=== PATIENT | male | born 1950 | race Caucasian/White ===

== ENCOUNTER → 2017-11-11 | Outpatient (CLI) | payer OTHER, MEDICAID | LOC: BHFA 10:00 | PROVIDERS: ATTEND Internal Medicine Cardiovascular Disease | DX: I10 Essential (primary) hypertension (principal) ==

== ENCOUNTER 2017-11-20 11:56 | Day surgery (SDC) | payer OTHER, MEDICAID ==
[2017-11-20] MEDS ORDERED: TEMAZEPAM 15 MG CAP PO PRN (12:00)
[2017-11-20] MEDS ORDERED: ACETAMINOPHEN 325 MG TAB PO PRN (12:00)
[2017-11-20] MEDS ORDERED: ASPIRIN EC 325 MG TAB PO ONE ×2 (12:00→12:28)
[2017-11-20] MEDS ORDERED: FAMOTIDINE 20 MG TAB PO ONE (12:00)
[2017-11-20] MEDS ORDERED: NS 1,000 ML IV SCH (12:00)
[2017-11-20] MEDS ORDERED: DIAZEPAM 5 MG TAB PO ONE (12:00)
[2017-11-20] MEDS ORDERED: diphenhydrAMINE 25 MG CAP PO ONE ×2 (12:00→12:27)
[2017-11-20] MEDS ORDERED: NITROGLYCERIN 0.4 MG BTL SL PRN (12:00)
--- NOTE | 2017-11-20 12:10 | CPEKG ---
Heart Rate: 79 RR Interval: 759 P-R Interval: 184 QRSD Interval: 98 QT Interval: 368 QTC Interval: 422 P Palmer: 28 QRS Palmer: 39 T Wave Palmer: 63 EKG Severity - BORDERLINE ECG - EKG Impression: SINUS RHYTHM EKG Impression: LOW VOLTAGE IN FRONTAL LEADS EKG Impression: BORDERLINE T WAVE ABNORMALITIES Electronically Signed By: Mahin Mauricio 21-Nov-2017 19:13:02
[2017-11-20] MEDS ORDERED: FAMOTIDINE 20 MG TAB ONE (12:27)
[2017-11-20] MEDS ORDERED: DIAZEPAM 5 MG TAB ONE (12:28)
[2017-11-20 12:36] LABS: PLATELET COUNT 265 10^3/uL (150-400)
[2017-11-20 12:43] LABS: INR 0.91 (0.83-1.16); PROTIME(PATIENT) 12.5 SEC (12.0-15.0)
[2017-11-20] MEDS ORDERED: LIDOCAINE 1% 300 MG/30 ML SDV ONE (13:32)
[2017-11-20] MEDS ORDERED: fentaNYL 100 MCG/2 ML INJ ONE (13:32)
[2017-11-20] MEDS ORDERED: HEPARIN 10,000 UNIT/10 ML MDV (1,000 UNIT/ML) ONE (13:33)
[2017-11-20] MEDS ORDERED: IOPAMIDOL (ISOVUE-370) 150 ML BTL IV ONE ×2 (13:33)
[2017-11-20] MEDS ORDERED: MIDAZOLAM 2 MG/2 ML VIAL ONE ×2 (13:33→13:57)
[2017-11-20] MEDS ORDERED: VERAPAMIL 5 MG/2 ML VIAL ONE (13:33)
--- NOTE | 2017-11-20 13:37 | PDPROPOC ---
Sedation Plan of Care Sedation Plan of Care: vital signs stable, mental status noted, patient educated of risks, benefits, alternatives, patient can tolerate sedation ASA Classification: ASA 2 Planned drugs: fentanyl, midazolam Mallampati Score: Class 3 Mallampati Reference Image: Patient passed 3-3-2 rule?: No
--- NOTE | 2017-11-20 13:41 | PDGENHP ---
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 He has a very strong family history of CV illness. Paternal GF at 48 and father in early 60's because of complications of diabets. He has become progressively more short of breath with exercise. He now has CCS Class II and NYHA Class III symptoms. today he underwent nuclear stress test with very dramatic EKG changes suggestive of ischemia. this was considered a high risk stress test. Pertinent Past, Social, Family History: Please see HPI Relevant Physical Exam: VSS Alert oriented X 3, pleasant conversant. Understands risk benefit discussion ( I spoke with him for 30 minutes ABOUT MORTALITY RATE RISK OF STROKE HEART ATTACK ETC...)heart RRR with no murmur rub or gallop. Lungs CTA...Extremites withoue edema or clubbing. Cardiorespiratory Assessment: See above... Pt with high calcium score symptoms mainly related to SOB with exertion and decline in exercise tolerance, now with high risk stress test. He needs angiography as he has segmental wall motion abnormaloity on echo as well as a large perfusion deficit in circ territory.
[2017-11-20] MEDS ORDERED: ATROPINE SULFATE 1 MG/10 ML SYR IVP PRN (15:04)
[2017-11-20] MEDS ORDERED: ACETAMINOPHEN PO PRN (15:05)
[2017-11-20] MEDS ORDERED: TRAMADOL HCL 100 MG PO PRN (15:05)
[2017-11-20] MEDS ORDERED: HYDROCODONE PO PRN (15:05)
--- NOTE | 2017-11-20 15:16 | PDDXCAT ---
Diagnostic Cath Note - . Date: 11/20/17 Lan Specialist: Eleuterio High-risk criteria on non-invasive testing: stress-induced large perfusion defect (particularly if anterior) - Procedure Access: left wrist - Materials Left Heart Cath size: 6F Left Heart Cath materials: standard multipack (JL4, JR4, pigtail) - Findings-Left Heart Catheterization LM: 8mm in size with JASPAL III flow and no flow limiting obstruction. bifurcates into an LAD and Circ system. LAD: Ostial eccentric stenosis of 50% and 80% lesion proximal to the major diagonal takeoff and a good target distally with severe disease of both of the diagonal branches at the takeoff and for the first 15-20mm of both the alpha and beta branches of the principal diagonal. JASPAL III flow throughout. LCX: Codominant vessel with 90% proximal obstruction and total 100% occlusion of the circumflex proximal to the PDA takeoff. There is 100% occlusion to the circ/Om proximal with left to left collaterals to both distal branches. RCA: The patient has a small and codominant artery with a 90% obstruction of the mid RCA. LVEF: 45-50%. Wall motion: Basal inferior wall motion abnormality. Otherwise fairly good wall motion. Complications: NONE Assessment: The patient has severe triple vessel coronary disease as previously described with inferior wall hypokinesis. The findings are consistent with an ischemic cardiomyopathy and relatively well preserved ejection fraction. Plan: The patient will be discharged with activity restriction and then plan for CV surgical consultation. Patient Problems: Problems Problem Status Onset Coronary artery disease Acute Diabetes Acute Dyslipidemia Acute
[2017-11-20] MEDS ORDERED: BISOPROLOL FUMARATE 5 MG TAB PO SCH (21:00)
[2017-11-20] MEDS ORDERED: ATORVASTATIN CALCIUM 40 MG TAB PO SCH (21:00)
[2017-11-20] MEDS ORDERED: glipiZIDE 5 MG TAB PO SCH (21:00)
[2017-11-21] MEDS ORDERED: LISINOPRIL 20 MG TAB PO SCH (09:00)
[2017-11-21] MEDS ORDERED: CITALOPRAM 20 MG TAB PO SCH (09:00)
[2017-11-21] MEDS ORDERED: NON-FORMULARY NEW DRUG (Empagliflozin [Jardiance] 25 MG) PO SCH (09:00)
[2017-11-21] MEDS ORDERED: MULTIVITAMINS 1 EACH TAB PO SCH (09:00)
[2017-11-21] MEDS ORDERED: LIRAGLUTIDE 1.8 MG SQ SCH (09:00)
[2017-11-21] MEDS ORDERED: THYROID 60 MG TAB PO SCH (10:00)
== END 2017-11-20 18:01 | disposition home or self-care (01) ==
LOC: FCATH 11:56
PROVIDERS: ATTEND Internal Medicine Cardiovascular Disease
PROC: B2151ZZ Fluoroscopy of Left Heart using Low Osmolar Contrast (ICD-10-PCS; principal; 2017-11-20)
PROC: B2111ZZ Fluoroscopy of Multiple Coronary Arteries using Low Osmolar Contrast (ICD-10-PCS; principal; 2017-11-20)
PROC: 4A023N7 Measurement of Cardiac Sampling and Pressure, Left Heart, Percutaneous Approach (ICD-10-PCS; principal; 2017-11-20)
DX: I25.10 Atherosclerotic heart disease of native coronary artery without angina pectoris (principal); I25.82 Chronic total occlusion of coronary artery; R94.39 Abnormal result of other cardiovascular function study; R06.02 Shortness of breath; E78.5 Hyperlipidemia, unspecified; I10 Essential (primary) hypertension; F32.9 Major depressive disorder, single episode, unspecified; F41.9 Anxiety disorder, unspecified; E11.9 Type 2 diabetes mellitus without complications; E03.9 Hypothyroidism, unspecified; G89.29 Other chronic pain; Z87.891 Personal history of nicotine dependence; Z82.49 Family history of ischemic heart disease and other diseases of the circulatory system; Z82.3 Family history of stroke
CPT/HCPCS: A9500; J1644; J2250; J2785; J3010; Q9967

== ENCOUNTER → 2017-11-20 | Outpatient (CLI) | payer OTHER, MEDICAID | LOC: BHFA 09:30 | PROVIDERS: ATTEND Internal Medicine Cardiovascular Disease | DX: I10 Essential (primary) hypertension (principal) | CPT/HCPCS: 78452; 93017; A9500; J2785 ==

== ENCOUNTER → 2017-11-25 | Outpatient (CLI) | payer OTHER, MEDICAID | LOC: BHFA 11:30 | PROVIDERS: ATTEND Thoracic Surgery (Cardiothoracic Vascular Surgery) | DX: I25.10 Atherosclerotic heart disease of native coronary artery without angina pectoris (principal) ==

== ENCOUNTER → 2017-12-01 | Outpatient (CLI) | payer OTHER, MEDICAID | LOC: FIMAGING 13:29 | PROVIDERS: ATTEND Thoracic Surgery (Cardiothoracic Vascular Surgery) | DX: I25.10 Atherosclerotic heart disease of native coronary artery without angina pectoris (principal) ==

== ENCOUNTER 2017-12-02 09:27 | Inpatient (IN) | payer OTHER, MEDICAID ==
[~2017-12-02 09:27] MED LIST: AMINOCAPROIC ACID 5 GM/20 ML VIAL IV ONE; INSULIN REGULAR HUMAN 100 UNIT in NS 100 ML IV ONE; MANNITOL 25% 12.5 GM/50 ML VIAL IVP ONE; NOREPINEPHRINE BITARTRATE 16 MG in NS 250 ML IV ONE; PHENYLEPHRINE HCL 50 MG in NS 250 ML IV ONE; SODIUM BICARBONATE 20 MEQ, LIDOCAINE 1% 10 ML in NORMOSOL-R 1,000 ML MISC ONE; VERAPAMIL 5 MG, NITROGLYCERIN 2.5 MG, HEPARIN 500 UNIT, SODIUM BICARBONATE 0.2 MEQ in L... MISC ONE
[2017-12-02] MEDS ORDERED: niCARdipine/NACL 200 ML IV SCH (09:29)
[2017-12-02] MEDS ORDERED: CITRATE DEXTROSE SOLN 500 ML BAG MISC ONE (09:29)
[2017-12-02] MEDS ORDERED: ceFAZolin 2 GM/SWFI 2 GM/20 ML SYR IVP ONE (09:29)
[2017-12-02] MEDS ORDERED: MUPIROCIN 2% 22 GM OINT NS ONE (09:29)
[2017-12-02] MEDS ORDERED: LR 1,000 ML IV ONE (09:30)
[2017-12-02] MEDS ORDERED: LIDOCAINE 1% 2 ML INJ ID PRN (09:30)
[2017-12-02] MEDS ORDERED: PAPAVERINE HCL 60 MG/2 ML SDV ONE (10:17)
[2017-12-02] MEDS ORDERED: MINERAL OIL 10 ML VIAL ONE (10:17)
[2017-12-02] MEDS ORDERED: VERAPAMIL 5 MG/2 ML VIAL ONE (10:18)
--- NOTE | 2017-12-02 11:28 | PDHPUP ---
History & Physical Update H&P update statement: This history and physical update is based on an assessment of the patient which was completed after admission or registration (within 24 hours), but prior to the surgery/procedure. H&P update: no change in patient's condition since H&P completed
[2017-12-02] MEDS ORDERED: CALCIUM CHLORIDE 1 GM/10 ML INJ ONE ×2 (11:57→11:59)
[2017-12-02] MEDS ORDERED: PROTAMINE SULFATE 50 MG/5 ML VIAL IVP ONE (11:57)
[2017-12-02] MEDS ORDERED: HEPARIN 10,000 UNIT/10 ML MDV (1,000 UNIT/ML) ONE ×2 (11:58→12:00)
[2017-12-02] MEDS ORDERED: NA BICARBONATE 50 MEQ/50 ML VIAL ONE (11:58)
[2017-12-02] MEDS ORDERED: DOPamine/DEXTROSE/250 ML BAG IV ONE (11:58)
[2017-12-02] MEDS ORDERED: MILRINONE/DEXTROSE/100 ML BAG IV ONE (11:58)
[2017-12-02] MEDS ORDERED: ADENOSINE 6 MG/2 ML VIAL ONE (11:59)
[2017-12-02] MEDS ORDERED: ceFAZolin 1 GM VIAL ONE (11:59)
[2017-12-02] MEDS ORDERED: AMIODARONE HCL 150 MG/3 ML VIAL ONE ×2 (11:59→12:00)
[2017-12-02] MEDS ORDERED: niCARdipine/NACL/200 ML BAG IV ONE (11:59)
[2017-12-02] MEDS ORDERED: ALBUMIN 5% 250 ML BOTTLE IV ONE (11:59)
--- NOTE | 2017-12-02 11:59 | PDANEPAE ---
ANE History of Present Illness cad s/f CABG ANE Past Medical History - Cardiovascular History Hx Hypertension: Yes Hx Arrhythmias: No Hx Chest Pain: No Hx Coronary Artery / Peripheral Vascular Disease: Yes Hx CHF / Valvular Disease: No Hx Palpitations: No - Pulmonary History Hx COPD: No Hx Asthma/Reactive Airway Disease: No Hx Recent Upper Respiratory Infection: No Hx Oxygen in Use at Home: No Hx Sleep Apnea: No Sleep Apnea Screening Result - Last Documented: Positive - Neurologic History Hx Cerebrovascular Accident: No Hx Seizures: No Hx Dementia: No - Endocrine History Hx Diabetes: Yes Endocrine History Comment: NIDDM. HYPOTHYROID - Renal History Hx Renal Disorders: Yes Renal History Comment: CKD. NOCTURIA - Liver History Hx Hepatic Disorders: No - Neurological & Psychiatric Hx Hx Neurological and Psychiatric Disorders: Yes Neurological / Psychiatric History Comment: DEPRESSION/ANXIETY - Cancer History Hx Cancer: No - Congenital Disorder History Hx Congenital Disorders: No - GI History Hx Gastrointestinal Disorders: No - Chronic Pain History Chronic Pain: No - Surgical History Prior Surgeries: LAMINECTOMY ANE Review of Systems Review of Systems: - Exercise capacity METS (RN): 6 METS ANE Patient History - Allergies Allergies/Adverse Reactions: morphine [Morphine] Allergy (Mild, Verified 08/15/10 23:13) Rash - Home Medications Home medications: home medication list seen and reviewed Home Medications: Thyroid [Pratts Thyroid 60 MG (*)] 90 mg PO DAILY10 10/11/09 [Last Taken 1 Day Ago ~12/01/17] glipiZIDE [Glipizide] 5 mg PO BID 10/11/09 [Last Taken 1 Day Ago ~12/01/17] metFORMIN HCL [Glucophage 1000 mg] 1,000 mg PO BID 10/11/09 [Last Taken 11/30/17 ] Empagliflozin [Jardiance] 25 mg PO DAILY 08/15/10 [Last Taken 1 Day Ago ~] Lisinopril [Zestril 20 mg (*)] 20 mg PO DAILY 08/15/10 [Last Taken 1 Day Ago ~] Atorvastatin Calcium [Lipitor 40 mg (*)] 80 mg PO HS 11/20/17 [Last Taken 1 Day Ago ~12/01/17] Bisoprolol Fumarate [Zebeta (*)] 5 mg PO HS 11/20/17 [Last Taken 1 Day Ago ~03/13] Citalopram [CeleXA] 20 mg PO DAILY 11/20/17 [Last Taken 1 Day Ago ~12/01/17] Liraglutide [Victoza 3-Ubaldo] 1.8 mg SQ DAILY 11/20/17 [Last Taken 1 Day Ago ~03/13] Multivitamins [Multivitamin (*)] 1 each PO DAILY 11/20/17 [Last Taken 1 Day Ago ~12/01/17] traMADol HCL [Tramadol HCl ER] 100 mg PO DAILY PRN 11/20/17 [Last Taken 4 Days Ago ~11/28/17] Klonopin HS 12/01/17 [Last Taken 1 Day Ago ~12/01/17] - NPO status NPO Since - Liquids (Date): 12/02/17 NPO Since - Liquids (Time): 09:45 NPO Since - Solids (Date): 12/01/17 NPO Since - Solids (Time): 21:00 - Anes Hx Anes Hx: no prior problems - Smoking Hx Smoking Status: Former smoker - Alcohol Use Alcohol Use: None - Family Anes Hx Family Anes Hx: none ANE Labs/Vital Signs - Labs - CBC WBC: okay - Labs - BMP Glucose: 232 today - Vital Signs Blood Pressure: 143/82 Heart Rate: 73 Respiratory Rate: 18 O2 Sat (%): 95 Height: 168.91 cm Weight: 80.739 kg ANE Physical Exam - Airway Neck exam: FROM Mallampati Score: Class 2 Mouth exam: normal dental/mouth exam - Pulmonary Pulmonary: no respiratory distress - Cardiovascular Cardiovascular: regular rate and rhythym - ASA Status ASA Status: III ANE Anesthesia Plan Anesthesia Plan: general endotracheal anesthesia Lines/Monitors: arterial line, central line
[2017-12-02] MEDS ORDERED: MAGNESIUM SULFATE 1 GM/2 ML VIAL ONE (12:00)
[2017-12-02] MEDS ORDERED: methylPREDNISolone SOD SUCC 1 GM/8 ML VIAL ONE (12:00)
[2017-12-02] MEDS ORDERED: LIDOCAINE 2% 100 MG/5 ML SYR ONE ×2 (12:00→12:06)
[2017-12-02] MEDS ORDERED: CITRATE DEXTROSE SOLN 500 ML BAG ONE (12:00)
[2017-12-02] MEDS ORDERED: REMIFENTANIL HCL 1 MG VIAL ONE ×2 (12:04→13:51)
[2017-12-02] MEDS ORDERED: MIDAZOLAM 2 MG/2 ML VIAL ONE ×2 (12:05→12:07)
[2017-12-02] MEDS ORDERED: PROPOFOL/EMULSION 500 MG/50 ML BOTTLE IV ONE ×2 (12:05→13:51)
[2017-12-02] MEDS ORDERED: DEXAMETHASONE 4 MG/ML VIAL ONE (12:05)
[2017-12-02] MEDS ORDERED: epHEDrine SULFATE 10 MG/ML SYR ONE (12:05)
[2017-12-02] MEDS ORDERED: PHENYLEPHRINE HCL 100 MCG/ML SYR ONE (12:05)
[2017-12-02] MEDS ORDERED: ONDANSETRON 4 MG/2 ML VIAL ONE (12:05)
[2017-12-02] MEDS ORDERED: ROCURONIUM 100 MG/10 ML VIAL ONE (12:05)
[2017-12-02] MEDS ORDERED: fentaNYL 250 MCG/5 ML INJ ONE ×2 (12:05→13:10)
[2017-12-02] MEDS ORDERED: LIDOCAINE HCL 160 MG/4 ML LTA KIT TP ONE (12:06)
[2017-12-02] MEDS ORDERED: MIDAZOLAM 2 MG/2 ML VIAL IVP ONE (13:20)
[2017-12-02] MEDS ORDERED: DEXMEDETOMIDINE HCL 400 MCG in NS 100 ML IV SCH ×2 (13:30→15:30)
[2017-12-02] MEDS ORDERED: fentaNYL 50 MCG PATCH TD SCH (13:30)
[2017-12-02] MEDS ORDERED: fentaNYL 100 MCG/2 ML INJ ONE ×2 (15:58→16:15)
[2017-12-02] MEDS ORDERED: SODIUM CL NASAL 45 ML BTL EACHNARE PRN (16:22)
[2017-12-02] MEDS ORDERED: ONDANSETRON DISINTEGRATING 4 MG TAB PO PRN (16:22)
[2017-12-02] MEDS ORDERED: BISACODYL 10 MG SUPP PR PRN (16:22)
[2017-12-02] MEDS ORDERED: MEPERIDINE 25 MG/0.5 ML AMP IVP PRN (16:22)
[2017-12-02] MEDS ORDERED: MAGNESIUM HYDROXIDE 30 ML UDCUP PO PRN (16:22)
[2017-12-02] MEDS ORDERED: METOCLOPRAMIDE 10 MG/2 ML VIAL IVP PRN (16:22)
[2017-12-02] MEDS ORDERED: LACTULOSE 20 GM/30 ML UDCUP PO PRN (16:22)
[2017-12-02] MEDS ORDERED: ONDANSETRON 4 MG/2 ML VIAL IVP PRN (16:22)
[2017-12-02] MEDS ORDERED: PANTOPRAZOLE SODIUM 40 MG VIAL IVP ONE (16:22)
[2017-12-02] MEDS ORDERED: ACETAMINOPHEN 650 MG SUPP PR PRN (16:22)
[2017-12-02] MEDS ORDERED: POTASSIUM Cl (KCl) 50 ML IV PRN (16:22)
[2017-12-02] MEDS ORDERED: D50W 25 GM/50 ML SYR IVP PRN (16:22)
[2017-12-02] MEDS ORDERED: CEPACOL LOZENGE PO PRN (16:22)
[2017-12-02] MEDS ORDERED: POLYETHYLENE GLYCOL 3350 17 GM PKT PO PRN (16:22)
[2017-12-02] MEDS ORDERED: MAGNESIUM SULF 2 GM/WATER 50 ML IV ONE (16:22)
[2017-12-02] MEDS ORDERED: oxyCODONE IR 5 MG TAB PO PRN (16:30)
[2017-12-02] MEDS ORDERED: INSULIN REGULAR HUMAN 100 UNIT in NS 100 ML IV SCH (16:30)
[2017-12-02] MEDS ORDERED: NS 1,000 ML IV SCH (16:30)
[2017-12-02] MEDS ORDERED: SUGAMMADEX SODIUM 200 MG/2 ML VIAL IVP ONE (16:48)
--- NOTE | 2017-12-02 17:17 | PDMN ---
Medical Necessity Medical necessity: IP surgery per [facility] cpt 08820 CABG X 4
--- NOTE | 2017-12-02 17:19 | GOP ---
[f rep st] OPERATIVE REPORT DATE OF OPERATION: 12/02/2017 SURGEON: Junior Arroyo DO GUM ROLLING MACHINE TENDER: Mayra Lozano, TATYANA ANESTHESIOLOGIST: Paulo Singh MD PREOPERATIVE DIAGNOSIS: 1. Class 3 angina with severe 3-vessel disease and moderate left ventricular dysfunction. 2. Diabetes mellitus. 3. Ischemic cardiomyopathy. POSTOPERATIVE DIAGNOSIS: 1. Class 3 angina with severe 3-vessel disease and moderate left ventricular dysfunction. 2. Diabetes mellitus. 3. Ischemic cardiomyopathy. PROCEDURE PERFORMED: 1. Coronary bypass grafting x4, left internal mammary artery to LAD, right internal mammary artery t o the 2nd diagonal, saphenous vein graft to the lateral circumflex, and saphenous vein graft to the P DA. 2. Atricure ligation of left atrial appendage. 3. CABG for endoscopic vein harvest and AtriClip to the left atrial appendage. FINDINGS: DESCRIPTION OF PROCEDURE: The patient was consented for surgery, brought to the operating room, intu bated, monitoring lines were placed. He was prepped and draped in sterile classical manner. Sternot grabiel was performed. Both mammaries were harvested. They were excellent quality vessels with good trevor w. He was heparinized, cannulated. Cardiopulmonary bypass was begun. A cardioplegic arrest was obt ained with antegrade cardioplegia, topical hypothermia, and systemic cooling. Initially, a 1.4 mm PD A was grafted with vein both distally and proximally. It was a very small vessel. The main right co ronary artery was heavily calcified and this was the only side that could be grafted. It was brought out to the aorta in a standard fashion. I then grafted the lateral circumflex in the midportion due to heavy calcification extending out into the midportion of the ventricle. It was a 2 mm vessel. E xcellent conduit was grafted to it end-to-side and then brought off the ascending aorta in the standa rd fashion. Rewarming was begun while the right internal mammary artery was brought to the 2nd diago nal grafted. The 2nd diagonal was a 2 mm vessel. The mammary was 2 mm. It was grafted without inci dent and tacked to the epicardium. While rewarming was begun the left internal mammary artery was gr afted to the distal LAD and tacked to the epicardium. A 35 mm AtriClip was applied to the base of th e left atrial appendage. Cross-clamp was removed with suction on the ascending aortic vent. It shou ld be noted that Mayra KING harvested the vein endoscopically in the left leg. The patient was easi ly weaned from bypass. The heparin was reversed with protamine. The cannula was removed and oversew n. Two ventricular pacing wires, 2 pleural, 1 mediastinal drain were placed. The thymic fat and per icardium were closed. Chest was closed in standard fashion. Patient was returned to ICU in stable c ondition. /[id number]/MODL
[2017-12-02] MEDS ORDERED: SODIUM BICARBONATE 50 MEQ/50 ML SYR ONE (17:27)
[2017-12-02] MEDS: HYDROmorphone HCL/NS 0.5 MG/ML SYR IVP PRN ×2 (18:04→20:06)
--- NOTE | 2017-12-02 18:06 | CPEKG ---
Heart Rate: 89 RR Interval: 674 P-R Interval: 196 QRSD Interval: 96 QT Interval: 376 QTC Interval: 458 P Vance: 50 QRS Vance: 29 T Wave Vance: 109 EKG Severity - ABNORMAL ECG - EKG Impression: SINUS RHYTHM EKG Impression: LOW VOLTAGE IN FRONTAL LEADS Electronically Signed By: Josep Watson 03-Dec-2017 12:44:55
[2017-12-02] MEDS ORDERED: NA BICARBONATE 50 MEQ/50 ML VIAL IV ONE (18:15)
[2017-12-02] MEDS: fentaNYL 100 MCG/2 ML INJ IVP PRN ×4 (18:27→23:10)
[2017-12-02] MEDS: ALBUMIN 5% 250 ML IV PRN ×2 (19:46→20:07)
[2017-12-02] MEDS: MUPIROCIN 2% 22 GM OINT NS SCH (21:12)
[2017-12-02] MEDS: ceFAZolin 2 GM/SWFI 2 GM/20 ML SYR IVP SCH (21:57)
[2017-12-02] MEDS ORDERED: ceFAZolin 2 GM/DEXTROSE 100 ML IV SCH (22:00)
[2017-12-03] MEDS: fentaNYL 100 MCG/2 ML INJ IVP PRN ×9 (00:13→13:02)
[2017-12-03 04:19] LABS: PLATELET COUNT 152 10^3/uL (150-400)
[2017-12-03] MEDS: HEPARIN 5,000 UNIT/0.5 ML SYR SC SCH ×3 (05:57→21:59)
[2017-12-03] MEDS: ceFAZolin 2 GM/SWFI 2 GM/20 ML SYR IVP SCH ×3 (05:58→22:06)
--- NOTE | 2017-12-03 06:57 | SOAPPROG ---
SOAP Progress Note Assessment/Plan: Assessment: POD#1 CABG x 4 (FAJARDO-LAD, VIKRAM-Dx, SV-PLC, SV-PDA), EVH LLE, prophylactic AtriClip ligation left atrial appendage Sx severe CAD - s/p CABG with 2 arterial grafts. Extubated in the OR. Stable early postop course. Secondary prevention with ASA, BB as tolerated and statin when eating well. ISCM w LVEF 45-50% - Improved LV systolic fx post revasc. Off CPB without inotropic support. No sig volume overload. Adequate diuresis with stable renal fx. Staggered reintro of heart failure meds when appropriate. DM2 - Poorly controlled by preop A1c of 10.2%. Postop hyperglycemia managed with insulin gtt. Transition to basal/prandial/SSI per ICU/Hospitalist. Acute on chronic pain - Narc dep LBP. Postop pain exacerbated by bilateral IMAs/ pleural tubes. Management w multimodal analgesia. Plan: Routine POD#1 orders re wires, drains, orals and mobility. Add oral dilaudid to pain regimen. Colloid prn CVP < 10. Lasix prn CVP > 15. Probable tx to PCU later today. 12/03/17 06:53 Subjective: Currently comfortable. Hard to take a deep breath. No dizziness or nausea. Objective: Vital Signs Temp Pulse Resp BP Pulse Ox 36.6 C 95 29 H 148/65 H 96 12/02/17 22:00 12/03/17 06:00 12/03/17 06:00 12/03/17 06:00 12/03/17 06:00 Laboratory Results 12/03/17 04:00 12/03/17 04:00 12/02/17 12/03/17 12/04/17 05:59 05:59 05:59 Intake Total 1272.7 Output Total 2568 Balance -1295.3 HR, rhythm and BP stable. Min suppl O2. Adequate fluid balance. CXR-> hypoventilation, no PTX, no undrained effusions, mild pulm vasc congestion. CTOP thinning, amount sl elev. Labs as expected. Physical Exam - Physical Exam General Appearance: alert, no apparent distress Respiratory: crackles (bases), other (blakes x 3 y-d to pleurovac, serosang drainage, no air leak) Cardiac/Chest: regular rate, rhythm, other (Sternotomy CDI, TCPWs intact.) Abdomen: normal bowel sounds, non-tender, soft Skin: warm/dry Extremities: swelling (trace), other (LLE venotomy CDI) ICD10 Worksheet Patient Problems: Problems Problem Status Onset Acute blood loss anemia Acute Ischemic cardiomyopathy Acute S/P CABG x 4 Acute ~12/02/17 CKD (chronic kidney disease) Chronic Chronic pain Chronic Coronary artery disease Chronic Diabetes Chronic Dyslipidemia Chronic
[2017-12-03] MEDS: THYROID 60 MG TAB PO SCH (09:02)
[2017-12-03] MEDS: HYDROmorphONE/DILAUDID 2 MG TAB PO PRN ×4 (09:02→22:11)
[2017-12-03] MEDS: CITALOPRAM 20 MG TAB PO SCH (09:02)
[2017-12-03] MEDS: ASPIRIN 81 MG CHEWABLE TAB PO SCH (09:03)
[2017-12-03] MEDS: PANTOPRAZOLE SODIUM 40 MG TAB PO SCH (09:03)
[2017-12-03] MEDS: METOPROLOL TARTRATE 25 MG TAB PO SCH ×2 (09:03→21:59)
[2017-12-03] MEDS: MUPIROCIN 2% 22 GM OINT NS SCH ×2 (09:06→21:56)
[2017-12-03] MEDS ORDERED: D50W 25 GM/50 ML SYR IVP PRN (09:37)
[2017-12-03] MEDS ORDERED: INSULIN GLARGINE 100 UNITS/ML UNIT SC SCH (09:45)
[2017-12-03] MEDS: INSULIN REGULAR HUMAN 100 UNIT/ML UNIT SC SCH ×2 (11:55→18:22)
--- NOTE | 2017-12-03 12:04 | GCON ---
[f rep st] CONSULTATION MEDICINE CONSULTATION DATE OF CONSULTATION: 12/03/2017 REASON FOR CONSULT: The patient is a 67-year-old male with history of diabetes and coronary artery d lisy, who was admitted to the hospital by the cardiovascular surgery team for coronary artery bypas s grafting surgery. He was found to have severe triple vessel coronary disease on angiogram on November 20, 2017 and underwent cardiovascular surgery consultation. Medicine consultation was requested posto peratively for diabetes management and glycemic control. HISTORY OF PRESENT ILLNESS: The patient is a 67-year-old male with history of diabetes and coronary artery disease. He has 4 medications at home for diabetes including glipizide, metformin, Victoza, a nd Jardiance. He is followed by Dr. North with Endocrinology. His A1c has historically been in the 7s. However, his most recent A1c was 10.2. The patient was initiated on insulin drip post CABG and was transitioned to subcutaneous insulin this morning. Further postop management per the cardiovascu lar service. He is doing well on postop day 1. His pain is fairly well controlled. He denies chest pressure, shortness of breath, abdominal pain, nausea, vomiting, bowel or bladder symptoms. PAST MEDICAL HISTORY: 1. Coronary artery disease with historically elevated calcium score. 2. Ischemic cardiomyopathy with preserved ejection fraction on angiogram November 20, 2017. 3. Hypothyroidism. 4. Diabetes mellitus type 2. 5. Hypertension. 6. Hyperlipidemia. 7. Depression. MEDICATIONS: Please see Neul for completed outpatient medication list ALLERGIES: Morphine. 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 He is a former smoker. He denies significan t alcohol use. FAMILY HISTORY: Positive for coronary artery disease and [place] in his father. Diabetes in his father. Breast cancer in his sister. REVIEW OF SYSTEMS: A 10-point review of systems performed, was negative except for HPI. OBJECTIVE: VITAL SIGNS: Temperature is 36.7, blood pressure 98/50, heart rate 92, respiratory rate 20 he is 90% on 2 L. GENERAL: The patient is awake, alert, oriented, in no distress. HEENT: Head is atraumatic, normocephalic. Pupils equal, round, and reactive to light. Extraocular muscles intact. Oropharynx clear. Mucous members are moist. NECK: Supple. There is no JVD. HEART: Regular rate and rhythm. His sternal incision is clean, dry, and intact without erythema or drainage. LUNGS: R eveal decreased breath sounds bilaterally with atelectatic crackles at the bases. ABDOMEN: Soft, obe se, nondistended, nontender. Normoactive bowel sounds. EXTREMITIES: He has trace bilateral lower e xtremity edema. NEUROLOGIC: Is grossly nonfocal. LABORATORY DATA: CBC reveals a white blood cell count of 15.7, hemoglobin 12.2. Basic metabolic nye el shows normal electrolytes, normal creatinine of 0.9, blood sugar 123. Chest x-ray this morning, showed bibasilar atelectasis. ASSESSMENT AND PLAN: The patient is a 67-year-old male with a history of coronary artery disease, di abetes, hypertension, hyperlipidemia, who is admitted to the hospital for coronary artery bypass viola t after he was found to have severe triple-vessel coronary disease on angiogram at the end of October. 1. Coronary artery disease with ischemic cardiomyopathy, status post 4 vessel coronary artery bypass graft, postop day #1. His postop course is uncomplicated. Further management per the cardiovascula r surgery team. He will continue aspirin, statin, beta anastacio as tolerated. 2. Ischemic cardiomyopathy with ejection fraction of 45%-50%, diuresis per cardiovascular surgery. 3. Type 2 diabetes mellitus. The patient is on 4 hypoglycemic agents but is not on insulin. I note his A1c is 10.2%. He likely needs to initiate insulin therapy. I discussed this with the patient. He will transition from insulin drip to subcutaneous Lantus with sliding scale insulin. Will up tit rate this as indicated and continue to follow his blood sugars closely for tight glycemic control in the postop setting. 4. Acute on chronic pain with continued chronic continuous opioid dependence. Continue his outpatie nt pain medications in the interim with as needed fentanyl for breakthrough pain. 5. Anemia. This is mild and new. This may be acute blood loss anemia postoperatively. We will con tinue to follow. There is no evidence of active bleeding. 6. Deep venous thrombosis prophylaxis, heparin. 7. Code status: Patient is full code. DISPOSITION: Patient admitted to inpatient status. We will continue ICU for now. Possible transfer to PCU in the next 1-2 days. Thank you very much for this consultation. Medicine will continue to follow his diabetes and glycemi c management. Do not hesitate to call us with any further questions or concerns. /[id number]/MODL
--- NOTE | 2017-12-03 12:40 | ASMTCASEMG ---
Living Arrangements What is your living Answers: Alone arrangement? Who do you live with? Type Of Residence What kind of residence do Answers: House you live in? Discharge Plan Comments Coordination Status Comments Notes: Patient is a 67yo single male with a hx of diabetes and coronary artery disease who was admitted to the hospital for coronary artery bypass grafting surgery. OT/PT/cardiac rehab evals ordered. 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 D/C plan TBD. CM will follow. Date Signed: 12/03/2017 12:39 PM Electronically Signed By:Ynes Ashraf LCSW
[2017-12-03] MEDS ORDERED: FUROSEMIDE 40 MG/4 ML VIAL IVP ONE ×2 (14:18→14:30)
[2017-12-03] MEDS: HYDROCODONE/APAP 10/325 TAB PO PRN ×2 (14:48→20:04)
[2017-12-03] MEDS: clonazePAM 0.5 MG TAB PO PRN (20:05)
[2017-12-03] MEDS: ACETAMINOPHEN 325 MG TAB PO PRN (22:10)
[2017-12-03] MEDS ORDERED: KETOROLAC 30 MG/1 ML SDV IVP ONE (23:00)
[2017-12-03] MEDS: INSULIN LISPRO 100 UNIT/ML SC SCH (23:00)
[2017-12-04] MEDS: HYDROmorphONE/DILAUDID 2 MG TAB PO PRN ×2 (01:50→06:21)
[2017-12-04] MEDS: HYDROCODONE/APAP 10/325 TAB PO PRN ×4 (01:51→21:39)
[2017-12-04] MEDS: ceFAZolin 2 GM/SWFI 2 GM/20 ML SYR IVP SCH (05:43)
[2017-12-04] MEDS: HEPARIN 5,000 UNIT/0.5 ML SYR SC SCH ×3 (05:43→21:25)
--- NOTE | 2017-12-04 07:40 | SOAPPROG ---
SOAP Progress Note Assessment/Plan: Assessment: POD#2 CABG x 4 (FAJARDO-LAD, VIKRAM-Dx, SV-PLC, SV-PDA), EVH LLE, prophylactic AtriClip ligation left atrial appendage Sx severe CAD - s/p CABG with 2 arterial grafts. Extubated in the OR. Stable early postop hemodynamics. Rt PTX controlled with suction. Secondary prevention with ASA, BB as tolerated and statin when eating well. ISCM w LVEF 45-50% - Improved LV systolic fx post revasc. Off CPB without inotropic support. No sig volume overload. Dwindling diuresis with mild renal insuff yest, likely secondary to relative hypotension on BB and narcs. DM2 - Poorly controlled by preop A1c of 10.2%. Postop hyperglycemia managed with insulin gtt. Transition to basal/prandial/SSI per hospitalist. Acute on chronic pain - Narc dep LBP. Postop pain exacerbated by bilateral IMAs/ pleural tubes. Management w multimodal analgesia. Plan: Remove Vwire and left pleural tube. Keep rt pleural tube and ant med tube to pleurovac. Suction at rest, WS for ambulation. D/C duragesic patch. D/C dilaudid. Hold metoprolol. Relax fluid restriction today. Consider IVF pending UOP. Inc activity and pulmonary toilet. Wean O2. 12/04/17 07:35 Subjective: Relaxed. c/o pain but having a hard time keeping his eyes open. Objective: Vital Signs Temp Pulse Resp BP Pulse Ox 36.8 C 90 18 111/66 94 12/04/17 07:32 12/04/17 07:32 12/04/17 07:32 12/04/17 07:32 12/04/17 07:32 Laboratory Results 12/03/17 04:00 12/04/17 05:55 12/03/17 12/04/17 12/05/17 05:59 05:59 05:59 Intake Total 1272.7 2090 Output Total 2568 1960 Balance -1295.3 130 2 blakes back to pleurovac yest for air leak. CXR bilat apical PTX, R> L. Sl tachy with marginal SBPs, decr UOP, and inc Cr. O2 req up to 10 lpm. Today's CXR -> resolved Left PTX, rt lung well expanded. No sig pulm vasc congestion or undrained pleural effusions. Physical Exam - Physical Exam General Appearance: no apparent distress Respiratory: decreased breath sounds, other (blakes x 2 y-d to pleurovac, serosang drainage, no air leak; left pl bartolo to bulb suction, serosang drainage ) Cardiac/Chest: regular rate, rhythm, tachycardia, other (Sternotomy CDI. Vwire intact.) Abdomen: non-tender, soft Skin: warm/dry Extremities: swelling (1+ dependent) ICD10 Worksheet Patient Problems: Problems Problem Status Onset Acute blood loss anemia Acute Ischemic cardiomyopathy Acute S/P CABG x 4 Acute ~12/02/17 chronic disease mgmt/transitional care Acute CKD (chronic kidney disease) Chronic Chronic pain Chronic Coronary artery disease Chronic Diabetes Chronic Dyslipidemia Chronic
--- NOTE | 2017-12-04 08:37 | HOSPPROG ---
Hospitalist Progress Note Assessment/Plan: CAD S/P 4v CABG POD #2 - post-op management per CV surgery team -ASA, statin -BB on hold AHRF - increased O2 needs to 10 LPM, chest tube in place, management per CV surg. -CXR pers reviewed / inter, resolved left ptx, improving right ptx, low lung volumes / atelectasis -cont IS Ischemic cardiomyopathy - EF 45-50%. Diuretics per CV surg, though likely need to be held today with rising Cr CURTIS - ?pre-renal vs ATN. S/P IV Lasix yest. -will discuss with CV surg regarding replacing some volume with NS Type 2 DM - BG's into 300's yesterday. AM BG 165. -increase Lantus to 15 units, cont SSI -cont to hold MTF -resume Jardiance and Vyctoza Hyponatremia - mild, suspect hypovolemic after IV Lasix -follow Hypothyroidism - cont levothyroxine Full code DVT PPLX - heparin Dispo - cont inpt Subjective: Pt doing ok. Pain with movement, coughing. Denies SOB. No orthopnea or PND. No peripheral edema. No fevers. Objective: Vital Signs Temp Pulse Resp BP Pulse Ox 36.8 C 90 18 111/66 94 12/04/17 07:32 12/04/17 07:32 12/04/17 07:32 12/04/17 07:32 12/04/17 07:32 Laboratory Results 12/03/17 04:00 12/04/17 05:55 12/03/17 12/04/17 12/05/17 05:59 05:59 05:59 Intake Total 1272.7 2090 Output Total 2568 1960 Balance -1295.3 130 - Physical Exam Constitutional: no apparent distress Eyes: PERRL Ears, Nose, Mouth, Throat: moist mucous membranes Cardiovascular: regular rate and rhythym Respiratory: no respiratory distress, reduced air movement Gastrointestinal: normoactive bowel sounds, soft, non-tender abdomen Skin: warm, other (midline incision c/d/i, no erythema or purulence) Musculoskeletal: full muscle strength Neurologic: AAOx3 Psychiatric: interacting appropriately ICD10 Worksheet Patient Problems: Problems Problem Status Onset Acute blood loss anemia Acute Ischemic cardiomyopathy Acute S/P CABG x 4 Acute ~12/02/17 chronic disease mgmt/transitional care Acute CKD (chronic kidney disease) Chronic Chronic pain Chronic Coronary artery disease Chronic Diabetes Chronic Dyslipidemia Chronic
[2017-12-04] MEDS: INSULIN LISPRO 100 UNIT/ML SC SCH ×4 (08:51→23:14)
[2017-12-04] MEDS: SENNOSIDES/DOCUSATE SODIUM TAB PO SCH ×2 (08:52→21:25)
[2017-12-04] MEDS: THYROID 60 MG TAB PO SCH (08:53)
[2017-12-04] MEDS: MULTIVITAMINS 1 EACH TAB PO SCH (08:54)
[2017-12-04] MEDS: ASPIRIN 81 MG CHEWABLE TAB PO SCH (08:54)
[2017-12-04] MEDS: MUPIROCIN 2% 22 GM OINT NS SCH (08:54)
[2017-12-04] MEDS: CITALOPRAM 20 MG TAB PO SCH (08:55)
[2017-12-04] MEDS: PANTOPRAZOLE SODIUM 40 MG TAB PO SCH (08:55)
[2017-12-04] MEDS ORDERED: INSULIN GLARGINE 100 UNITS/ML UNIT SC SCH ×2 (09:00)
[2017-12-04] MEDS: Liraglutide [Victoza 3-Pak] 1.8 MG SQ SCH (10:53)
[2017-12-04] MEDS: Empagliflozin [Jardiance] 25 MG PO SCH (10:53)
[2017-12-04] MEDS: ACETAMINOPHEN 325 MG TAB PO PRN (11:58)
[2017-12-04] MEDS ORDERED: HYDROmorphONE/DILAUDID 2 MG TAB PO PRN (12:00)
--- NOTE | 2017-12-04 15:55 | ASMTCMCOM ---
CM Note CM Note Notes: Therapies have cleared pt to d/c home independent with outpatient cardiac rehab. CM available for changes. Plan: Independent Date Signed: 12/04/2017 03:55 PM Electronically Signed By:CAMRYN Olmos
[2017-12-04] MEDS: TAMSULOSIN HCL 0.4 MG CAP PO SCH (19:52)
[2017-12-04] MEDS: NS 1,000 ML IV SCH (19:53)
[2017-12-04] MEDS ORDERED: AMIODARONE HCL 200 ML IV ONE (20:54)
[2017-12-04] MEDS ORDERED: AMIODARONE HCL 100 ML IV ONE (20:54)
[2017-12-04] MEDS: ATORVASTATIN CALCIUM 40 MG TAB PO SCH (21:25)
[2017-12-05] MEDS ORDERED: AMIODARONE HCL 540 MG in D5W 300 ML IV ONE (03:00)
[2017-12-05] MEDS: HEPARIN 5,000 UNIT/0.5 ML SYR SC SCH (05:42)
[2017-12-05] MEDS: NS 1,000 ML IV SCH (05:43)
[2017-12-05] MEDS: HYDROCODONE/APAP 10/325 TAB PO PRN ×4 (05:48→23:55)
--- NOTE | 2017-12-05 07:28 | SOAPPROG ---
SOAP Progress Note Assessment/Plan: POD#3: CABG x 4 (FAJARDO-LAD, VIKRAM-Dx, SV-PLC, SV-PDA), EVH LLE, prophylactic AtriClip ligation left atrial appendage Sx severe CAD - s/p CABG with 2 arterial grafts. Extubated in the OR. Stable early postop hemodynamics. Left PTX resolved s/p removal of CT. Rt PTX resolved. with suction. Secondary prevention with ASA, BB as tolerated and statin when eating well. ISCM w LVEF 45-50% - Improved LV systolic fx post revasc. Heart failure meds when appropriate. DM2 - Poorly controlled by preop A1c of 10.2%. Mgmt as per hospitalist. Acute on chronic pain - Narc dep LBP. Management w multimodal analgesia. Post-op paroxysmal atrial fibrillation - conversion to SR with amiodarone. Beta- anastacio to be introduced once blood pressure higher. CHADS2 score 3. Thromboprophylaxis to be determined. DVT prophylaxis - SCDs/heparin SQ. Subjective: Denies pain/SOB. Objective: Vital Signs Temp Pulse Resp BP Pulse Ox 37.4 C 160 H 16 107/56 L 91 L 12/05/17 04:00 12/05/17 06:00 12/05/17 04:00 12/05/17 07:11 12/05/17 04:00 Laboratory Results 12/05/17 05:40 12/05/17 05:40 12/04/17 12/05/17 12/06/17 05:59 05:59 05:59 Intake Total 2089 2036 Output Total 1960 1480 150 Balance 130 557 -150 Physical Exam - Physical Exam General Appearance: WD/WN, alert, no apparent distress EENT: No scleral icterus (R), No scleral icterus (L) Neck: normal inspection Respiratory: No respiratory distress Cardiac/Chest: regular rate, rhythm, irregularly irregular Abdomen: non-tender, soft, No distended Skin: normal color, warm/dry Extremities: pedal edema Neuro/Psych: no motor/sensory deficits, alert, normal mood/affect, oriented x 3 ICD10 Worksheet Patient Problems: Problems Problem Status Onset Acute blood loss anemia Acute Ischemic cardiomyopathy Acute S/P CABG x 4 Acute ~12/02/17 chronic disease mgmt/transitional care Acute CKD (chronic kidney disease) Chronic Chronic pain Chronic Coronary artery disease Chronic Diabetes Chronic Dyslipidemia Chronic
[2017-12-05] MEDS: INSULIN LISPRO 100 UNIT/ML SC SCH ×4 (07:53→22:49)
[2017-12-05] MEDS: SENNOSIDES/DOCUSATE SODIUM TAB PO SCH ×2 (07:54→20:53)
[2017-12-05] MEDS: TAMSULOSIN HCL 0.4 MG CAP PO SCH (07:54)
[2017-12-05] MEDS: ASPIRIN 81 MG CHEWABLE TAB PO SCH (07:55)
[2017-12-05] MEDS: PANTOPRAZOLE SODIUM 40 MG TAB PO SCH (07:55)
[2017-12-05] MEDS: MULTIVITAMINS 1 EACH TAB PO SCH (07:56)
[2017-12-05] MEDS: CITALOPRAM 20 MG TAB PO SCH (07:56)
[2017-12-05] MEDS ORDERED: METOPROLOL TARTRATE 5 MG/5 ML INJ IVP ONE (08:27)
[2017-12-05] MEDS ORDERED: INSULIN GLARGINE 100 UNITS/ML UNIT SC SCH ×2 (08:45→18:44)
[2017-12-05] MEDS ORDERED: D50W 25 GM/50 ML SYR IVP PRN (08:45)
[2017-12-05] MEDS ORDERED: AMIODARONE HCL 100 ML IV ONE (09:00)
[2017-12-05] MEDS ORDERED: METOPROLOL TARTRATE 25 MG TAB PO SCH (09:00)
[2017-12-05] MEDS: Liraglutide [Victoza 3-Pak] 1.8 MG SQ SCH (11:15)
[2017-12-05] MEDS: Empagliflozin [Jardiance] 25 MG PO SCH (11:15)
[2017-12-05] MEDS: THYROID 60 MG TAB PO SCH (12:03)
[2017-12-05] MEDS: APIXABAN 2.5 MG TAB PO SCH ×2 (13:18→20:53)
--- NOTE | 2017-12-05 13:33 | HOSPPROG ---
Hospitalist Progress Note Assessment/Plan: CAD S/P 4v CABG POD #2 - post-op management per CV surgery team -cont ASA, statin, BB Ischemic cardiomyopathy - EF 45-50%. AHRF - small ptx, improving by CXR -cont IS -chest tube management per surg CURTIS - Cr improving, receiving some fluid back after IV Lasix. Type 2 DM - BG's still elevated -increase Lantus to 18 units, increase SSI, continue to up-titrate insulin -cont to hold MTF Hyponatremia - mild, improved today Hypothyroidism - cont levothyroxine Full code DVT PPLX - heparin Dispo - cont inpt. CV surgery is primary, we are managing DM / bg's only. Subjective: Pt feeling ok. Pain controlled. Feels a little hypoglycemic after insulin given, but no documented low bg's. Afebrile. No SOB. Objective: Vital Signs Temp Pulse Resp BP Pulse Ox 36.9 C 75 24 H 105/70 90 L 12/05/17 12:21 12/05/17 12:21 12/05/17 12:21 12/05/17 13:07 12/05/17 12:21 Laboratory Results 12/05/17 07:45 12/05/17 05:40 12/04/17 12/05/17 12/06/17 05:59 05:59 05:59 Intake Total 2089 2036 100 Output Total 1959 1480 270 Balance 130 557 -170 - Physical Exam Constitutional: no apparent distress Eyes: PERRL Ears, Nose, Mouth, Throat: moist mucous membranes Cardiovascular: regular rate and rhythym Respiratory: no respiratory distress Gastrointestinal: normoactive bowel sounds, soft, non-tender abdomen Skin: warm Musculoskeletal: full muscle strength Neurologic: AAOx3 Psychiatric: interacting appropriately ICD10 Worksheet Patient Problems: Problems Problem Status Onset Acute blood loss anemia Acute Ischemic cardiomyopathy Acute S/P CABG x 4 Acute ~12/02/17 chronic disease mgmt/transitional care Acute CKD (chronic kidney disease) Chronic Chronic pain Chronic Coronary artery disease Chronic Diabetes Chronic Dyslipidemia Chronic
[2017-12-05] MEDS: ATORVASTATIN CALCIUM 40 MG TAB PO SCH (20:52)
[2017-12-05] MEDS: AMIODARONE HCL 200 MG TAB PO SCH (20:53)
[2017-12-05] MEDS: METOPROLOL TARTRATE 25 MG TAB PO SCH (20:53)
[2017-12-05] MEDS: clonazePAM 0.5 MG TAB PO PRN (22:49)
[2017-12-06] MEDS: HYDROCODONE/APAP 10/325 TAB PO PRN ×3 (05:56→18:01)
[2017-12-06] MEDS: AMIODARONE HCL 200 MG TAB PO SCH ×2 (06:46→21:03)
[2017-12-06] MEDS: METOPROLOL TARTRATE 25 MG TAB PO SCH ×2 (06:47→21:03)
--- NOTE | 2017-12-06 07:43 | SOAPPROG ---
SOAP Progress Note Assessment/Plan: POD#4: CABG x 4 (FAJARDO-LAD, VIKRAM-Dx, SV-PLC, SV-PDA), EVH LLE, prophylactic AtriClip ligation left atrial appendage Sx severe CAD - s/p CABG with 2 arterial grafts. Extubated in the OR. Stable early postop hemodynamics. Secondary prevention with ASA, BB as tolerated and statin when eating well. CTs converted bulb suction. Plan for removal 12/07. ISCM w LVEF 45-50% - Improved LV systolic fx post revasc. Heart failure meds when appropriate. DM2 - Poorly controlled by preop A1c of 10.2%. Mgmt as per hospitalist. Acute on chronic pain - Narc dep LBP. Management w multimodal analgesia. Post-op paroxysmal atrial fibrillation - conversion to SR with amiodarone. Beta- anastacio to be introduced once blood pressure higher. CHADS2 score 3. Thromboprophylaxis with Eliquis. DVT prophylaxis - SCDs/Eliquis. Disposition - home Thursday without services. Subjective: No complaints. Objective: Vital Signs Temp Pulse Resp BP Pulse Ox 36.7 C 140 H 24 H 141/75 H 94 12/06/17 06:09 12/06/17 06:47 12/06/17 06:36 12/06/17 06:47 12/06/17 06:36 Laboratory Results 12/06/17 06:00 12/06/17 06:00 12/05/17 12/06/17 12/07/17 05:59 05:59 05:59 Intake Total 2037 2385 Output Total 1480 1600 Balance 557 785 Physical Exam - Physical Exam General Appearance: WD/WN, alert, no apparent distress EENT: No scleral icterus (R), No scleral icterus (L) Neck: normal inspection Respiratory: No respiratory distress Cardiac/Chest: regular rate, rhythm Abdomen: non-tender, soft, No distended Skin: normal color, warm/dry Extremities: pedal edema Neuro/Psych: no motor/sensory deficits, alert, normal mood/affect, oriented x 3 ICD10 Worksheet Patient Problems: Problems Problem Status Onset Acute blood loss anemia Acute Ischemic cardiomyopathy Acute S/P CABG x 4 Acute ~12/02/17 chronic disease mgmt/transitional care Acute CKD (chronic kidney disease) Chronic Chronic pain Chronic Coronary artery disease Chronic Diabetes Chronic Dyslipidemia Chronic
[2017-12-06] MEDS: ASPIRIN 81 MG CHEWABLE TAB PO SCH (08:23)
[2017-12-06] MEDS: SENNOSIDES/DOCUSATE SODIUM TAB PO SCH ×2 (08:23→21:02)
[2017-12-06] MEDS: INSULIN GLARGINE 100 UNITS/ML UNIT SC SCH (08:24)
[2017-12-06] MEDS: APIXABAN 2.5 MG TAB PO SCH ×2 (08:24→21:02)
[2017-12-06] MEDS: PANTOPRAZOLE SODIUM 40 MG TAB PO SCH (08:24)
[2017-12-06] MEDS: CITALOPRAM 20 MG TAB PO SCH (08:24)
[2017-12-06] MEDS: MULTIVITAMINS 1 EACH TAB PO SCH (08:24)
[2017-12-06] MEDS ORDERED: METOPROLOL TARTRATE 25 MG TAB PO SCH ×2 (08:34→21:00)
[2017-12-06] MEDS: INSULIN LISPRO 100 UNIT/ML SC SCH ×4 (08:35→21:14)
[2017-12-06] MEDS: THYROID 60 MG TAB PO SCH (11:50)
[2017-12-06] MEDS: TAMSULOSIN HCL 0.4 MG CAP PO SCH (11:50)
--- NOTE | 2017-12-06 11:55 | HOSPPROG ---
Hospitalist Progress Note Assessment/Plan: CAD S/P 4v CABG POD #42 - post-op management per CV surgery team -cont ASA, statin, BB Ischemic cardiomyopathy - EF 45-50%. AHRF - 3 LPM. Small ptx, improving by CXR -cont IS -chest tube management per surg Type 2 DM - BG's finally improved to 100's with aggressive up-titration of insulin. His a1c was >10 on Jardiance, Victoza, Glipizide and MTF as outpt. -increased lantus to 24 u daily plus SSI -given poor control on 4 agents as outpt, rec d/c'ing all other hypoglycemic agents except MTF (resume at d/c) and continue Lantus/Lispro at dc -pt agreeable to starting insulin, likely needs additional teaching, will review with RN CUTRIS - Cr improving Hyponatremia - mild, improved today Hypothyroidism - cont levothyroxine Full code DVT PPLX - heparin Dispo - cont inpt. CV surgery is primary, we are managing DM / bg's only. Subjective: Pt doing well, ambulating in halls. Pain controlled. No CP or SOB. No fevers. Objective: Vital Signs Temp Pulse Resp BP Pulse Ox 36.7 C 82 15 99/47 L 92 12/06/17 08:00 12/06/17 10:48 12/06/17 08:00 12/06/17 10:48 12/06/17 08:00 Laboratory Results 12/06/17 06:00 12/06/17 06:00 12/05/17 12/06/17 12/07/17 05:59 05:59 05:59 Intake Total 2037 2385 Output Total 1480 1600 Balance 557 785 - Physical Exam Constitutional: no apparent distress Eyes: PERRL Ears, Nose, Mouth, Throat: moist mucous membranes Cardiovascular: regular rate and rhythym Respiratory: no respiratory distress Gastrointestinal: normoactive bowel sounds, soft, non-tender abdomen Skin: warm Musculoskeletal: full muscle strength Neurologic: AAOx3 Psychiatric: interacting appropriately ICD10 Worksheet Patient Problems: Problems Problem Status Onset Acute blood loss anemia Acute Ischemic cardiomyopathy Acute S/P CABG x 4 Acute ~12/02/17 chronic disease mgmt/transitional care Acute CKD (chronic kidney disease) Chronic Chronic pain Chronic Coronary artery disease Chronic Diabetes Chronic Dyslipidemia Chronic
[2017-12-06] MEDS: Empagliflozin [Jardiance] 25 MG PO SCH (11:58)
[2017-12-06] MEDS: Liraglutide [Victoza 3-Pak] 1.8 MG SQ SCH (11:58)
[2017-12-06] MEDS: ATORVASTATIN CALCIUM 40 MG TAB PO SCH (21:02)
[2017-12-07] MEDS: HYDROCODONE/APAP 10/325 TAB PO PRN ×3 (00:18→12:38)
--- NOTE | 2017-12-07 06:48 | SOAPPROG ---
SOAP Progress Note Assessment/Plan: POD#5: CABG x 4 (FAJARDO-LAD, VIKRAM-Dx, SV-PLC, SV-PDA), EVH LLE, prophylactic AtriClip ligation left atrial appendage Sx severe CAD - s/p CABG with 2 arterial grafts. Extubated in the OR. Stable early postop hemodynamics. Secondary prevention with ASA, BB as tolerated and statin when eating well. CTs converted bulb suction and removed this morning. ISCM w LVEF 45-50% - Improved LV systolic fx post revasc. DM2 - Poorly controlled by preop A1c of 10.2%. Mgmt as per hospitalist. Acute on chronic pain - Narc dep LBP. Management w multimodal analgesia. Post-op paroxysmal atrial fibrillation - conversion to SR with amiodarone. Beta- anastacio to be introduced once blood pressure higher. CHADS2 score 3. Thromboprophylaxis with Eliquis. DVT prophylaxis - SCDs/Eliquis. Disposition - home Thursday without services. Subjective: Feels ready to be going home. Objective: Vital Signs Temp Pulse Resp BP Pulse Ox 36.9 C 90 16 132/65 H 93 12/07/17 04:00 12/07/17 04:00 12/07/17 04:00 12/07/17 04:00 12/07/17 04:00 Laboratory Results 12/06/17 06:00 12/06/17 06:00 12/06/17 12/07/17 12/08/17 05:59 05:59 05:59 Intake Total 2385 800 Output Total 1600 1380 Balance 785 -580 Physical Exam - Physical Exam General Appearance: WD/WN, alert, no apparent distress EENT: No scleral icterus (R), No scleral icterus (L) Neck: normal inspection Respiratory: No respiratory distress Cardiac/Chest: regular rate, rhythm Abdomen: non-tender, soft, No distended Skin: normal color, warm/dry Extremities: pedal edema Neuro/Psych: no motor/sensory deficits, alert, normal mood/affect, oriented x 3 ICD10 Worksheet Patient Problems: Problems Problem Status Onset Acute blood loss anemia Acute Ischemic cardiomyopathy Acute S/P CABG x 4 Acute ~12/02/17 chronic disease mgmt/transitional care Acute CKD (chronic kidney disease) Chronic Chronic pain Chronic Coronary artery disease Chronic Diabetes Chronic Dyslipidemia Chronic
[2017-12-07 07:37] VITALS: BP 134/72
[2017-12-07] MEDS ORDERED: INSULIN GLARGINE 100 UNITS/ML UNIT SC SCH (08:26)
[2017-12-07] MEDS: INSULIN LISPRO 100 UNIT/ML SC SCH ×3 (08:27→12:37)
[2017-12-07] MEDS: CITALOPRAM 20 MG TAB PO SCH (08:28)
[2017-12-07] MEDS: INSULIN GLARGINE 100 UNITS/ML UNIT SC SCH (08:28)
[2017-12-07] MEDS: ASPIRIN 81 MG CHEWABLE TAB PO SCH (08:28)
[2017-12-07] MEDS: APIXABAN 2.5 MG TAB PO SCH (08:28)
[2017-12-07] MEDS: METOPROLOL TARTRATE 25 MG TAB PO SCH (08:28)
[2017-12-07] MEDS: AMIODARONE HCL 200 MG TAB PO SCH (08:28)
[2017-12-07] MEDS: MULTIVITAMINS 1 EACH TAB PO SCH (08:30)
[2017-12-07] MEDS: PANTOPRAZOLE SODIUM 40 MG TAB PO SCH (08:30)
[2017-12-07] MEDS ORDERED: metFORMIN HCL 500 MG TAB PO SCH (08:45)
--- NOTE | 2017-12-07 08:52 | PDHOMEO2F ---
Home Oxygen Face to Face Home Orders: I certify that a physician or a nurse practitioner or physician's assistant professor of german has had a [id number] encounter with this patient on the date of this order due to the diagnosis listed, which relates to the primary reason the patient requires home oxygen. Alternative treatments have been tried, or considered, and deemed ineffective. It is anticipated that supplemental oxygen will result in improvement with treatment. Home oxygen qualifying diagnosis: hypoxemia, pleural effusions, SOB, s/p CABG SpO2 on room air (%): 84 Frequency of home oxygen needed: continuous Home oxygen liters per minute: 2 Home oxygen delivery device: nasal cannula Concentrator: Yes E-tanks for mobility and back up: Yes If ordering portable O2, is the patient mobile in the home?: Yes I certify that, based on these findings, the home oxygen is medically necessary for this patient for the following length of time. Length of time home oxygen needed: 1 month
[2017-12-07] MEDS ORDERED: FUROSEMIDE 40 MG TAB PO SCH (09:00)
[2017-12-07] MEDS ORDERED: POTASSIUM CL 20 MEQ TAB PO SCH (09:00)
--- NOTE | 2017-12-07 09:07 | ASMTLACE ---
LACE Length of stay for Answers: 4-6 days current admission Acuity / Level of Answers: Yes Care: Did the patient have an inpatient admission? Comorbidities - select Answers: Coronary Artery Disease all that apply Diabetes (uncontrolled or controlled) Other Notes: HTN; CKD # of Emergency department Answers: 0 visits in the last 6 months Social determinants Answers: Mental health diagnosis (anxiety, depression, pers onality disorders, etc.) Score: 14 Date Signed: 12/07/2017 09:07 AM Electronically Signed By:Elizabeth Ventura RN
[2017-12-07] MEDS: TAMSULOSIN HCL 0.4 MG CAP PO SCH (09:44)
[2017-12-07] MEDS: SENNOSIDES/DOCUSATE SODIUM TAB PO SCH (09:44)
[2017-12-07] MEDS: THYROID 60 MG TAB PO SCH (09:45)
[2017-12-07] MEDS ORDERED: INSULIN GLARGINE 100 UNITS/ML SYRINGE SC ONE (09:45)
--- NOTE | 2017-12-07 11:31 | HOSPPROG ---
Hospitalist Progress Note Assessment/Plan: #Uncontrolled DM: failed on 4 agents -DC on Levimer 35 units, Aspart SSI. 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 May need ACEI outpatient #Hypothyroidism #CURTIS: avoid NSAIDs. Monitor closely with Lasix Subjective: no issues overnight Objective: Vital Signs Temp Pulse Resp BP Pulse Ox 36.8 C 94 12 134/72 H 93 12/07/17 07:36 12/07/17 07:36 12/07/17 07:36 12/07/17 07:36 12/07/17 07:36 Laboratory Results 12/06/17 06:00 12/06/17 06:00 12/06/17 12/07/17 12/08/17 05:59 05:59 05:59 Intake Total 2385 800 Output Total 1600 1380 Balance 785 -580 - Physical Exam Constitutional: no apparent distress Eyes: PERRL Ears, Nose, Mouth, Throat: moist mucous membranes Cardiovascular: regular rate and rhythym, edema (+2 ankle edema), other ( sternal incision dressed, CDI) Respiratory: no respiratory distress Gastrointestinal: normoactive bowel sounds Genitourinary: no bladder fullness Skin: warm ICD10 Worksheet Patient Problems: Problems Problem Status Onset chronic disease mgmt/transitional care Acute Chronic pain Chronic Acute blood loss anemia Acute S/P CABG x 4 Acute ~12/02/17 CKD (chronic kidney disease) Chronic Ischemic cardiomyopathy Acute Dyslipidemia Chronic Diabetes Chronic Coronary artery disease Chronic
--- NOTE | 2017-12-07 16:55 | PDDCSUM ---
Discharge Summary Discharge Summary: ADMISSION DATE: 12/02/17 DISCHARGE DATE: 12/07/17 ADMISSION DIAGNOSES: 1. CAD with ischemic cardiomyopathy 2. DM, poorly controlled (A1c 10.2%) DISCHARGE DIAGNOSES: 1. CAD with ischemic cardiomyopathy 2. DM, poorly controlled (A1c 10.2%) 3. Acute blood loss anemia 4. Post-op paroxysmal atrial fibrillation 5. Urinary retention PROCEDURES 12/02/17, Junior Arroyo: 1. CABGx4 (FAJARDO-LAD, VIKRAM-Dx, SVG-PLC, SVG-PDA), EVH LLE, AtriClip [facility]AS HOSPITAL COURSE BY PROBLEM LIST 1. CAD with ischemic cardiomyopathy - s/p cABGx4 with improvement in LV function post-operatively. Continue beta-anastacio, ASA, and statin for secondary prevention. 2. DM, poorly controlled (A1c 10.2%) - hospitalist consulted for management with adequate BS control. Lantus and Aspart insulin sliding scale prescribed at discharge by hospitalist with further management as per established beater room supervisor. 3. Acute blood loss anemia - stable without the need for transfusions. 4. Post-op paroxysmal atrial fibrillation - conversion to SR with beta-anastacio and amiodarone. Thromboprophylaxis with Eliquis. 5. Urinary retention - Flomax started with good effect. CONDITION Good DISPOSITION Home, self-care ACTIVITY Pt was instructed on sternal precautions, activity limitations, and which problems to call [facility] with. Please see Discharge Plan in chart for specifics. DISCHARGE MEDICATIONS Continue: Thyroid [[place] Thyroid 60 MG (*)] 90 mg PO DAILY10 metFORMIN HCL [Glucophage 1000 mg] 1,000 mg PO BID Atorvastatin Calcium [Lipitor 40 mg (*)] 80 mg PO HS Citalopram [CeleXA 20 MG] 20 mg PO DAILY Multivitamins [Multivitamin (*)] 1 each PO DAILY traMADol HCL [Tramadol HCl ER] 100 mg PO DAILY PRN clonazePAM [Klonopin (*)] 0.5 mg PO HS PRN New: Acetaminophen [Tylenol 325mg (*)] 325 - 650 mg PO Q4HRS PRN Amiodarone HCl [Pacerone (*)] 200 mg PO BID Apixaban [Eliquis] 2.5 mg PO BID Aspirin [Aspirin 81mg (*)] 81 mg PO DAILY Furosemide [Lasix 40 MG (*)] 40 mg PO DAILY Hydrocodone/APAP 5/325 [[place] 5/325 (*)] 1 - 2 tab PO Q6H PRN Insulin Aspart [Novolog Flexpen] 100 unit SQ DAILY (sliding scale instructed by hospitalist) Insulin Detemir [Levemir Flextouch] 40 unit SQ DAILY Metoprolol Tartrate [Lopressor 25 mg (*)] 12.5 mg PO BID Potassium Cl [Klor-Con 20 meq (*)] 20 meq PO DAILY #30 Unknown] Tamsulosin HCl [Flomax 0.4 MG (*)] 0.4 mg PO DAILY Stop: Glipizide Lisinopril Empagliflozin Liraglutide Bisoprolol PENDING STUDIES/LABS 1. CXR prior to surgical follow-up FOLLOW-UP 1. Junior Arroyo, 12/15/17, 10:45 AM 2. Broker Assistant 3. PCP
--- NOTE | 2017-12-09 13:42 | ASDISCHSUM ---
Discharge Information Plan Status:Home with No Needs Medically Cleared to Leave:12/07/2017 Discharge Date:12/07/2017 CM D/C Disposition:Home, Routine, Self-Care ADT D/C Disposition:Home, Routine, Self-Care Projected Discharge Date:12/07/2017 Transportation at D/C:Family Discharge Delay Reason: Follow-Up Date:12/07/2017 Discharge Slot: Final Diagnosis: Placement Information Patient Contact Information Contact Name:SALIMA Relationship:Daughter Address: Work Phone: City: [facility] Phone: State/[employer] Code: Email: Financial Information Financial Class:Medicare Primary Plan Desc:MEDICARE INPATIENT Primary Plan Number:[id number] Secondary Plan Desc:MED[place] Secondary Plan Number:[id number] Assessment Information LACE LACE Length of stay for Answers: 4-6 days current admission Acuity / Level of Answers: Yes Care: Did the patient have an inpatient admission? Comorbidities - select Answers: Coronary Artery Disease all that apply Diabetes (uncontrolled or controlled) Other Notes: HTN; CKD # of Emergency department Answers: 0 visits in the last 6 months Social determinants Answers: Mental health diagnosis (anxiety, depression, pers onality disorders, etc.) Score: 14 Date Signed: 12/07/2017 09:07 AM Electronically Signed By:Elizabeth Ventura RN [facility] Initial CM Assessment Living Arrangements What is your living Answers: Alone arrangement? Who do you live with? Type Of Residence What kind of residence do Answers: House you live in? Discharge Plan Comments Coordination Status Comments Notes: Patient is a 67yo single male with a hx of diabetes and coronary artery disease who was admitted to the hospital for coronary artery bypass grafting surgery. OT/PT/cardiac rehab evals ordered. 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 D/C plan TBD. CM will follow. Date Signed: 12/03/2017 12:39 PM Electronically Signed By:Ynes Ashraf LCSW [facility] CM Progress Note CM Note CM Note Notes: Therapies have cleared pt to d/c home independent with outpatient cardiac rehab. CM available for changes. Plan: Independent Date Signed: 12/04/2017 03:55 PM Electronically Signed By:CAMRYN Olmos Case Management Discharge Plan Note Case Management Discharge Discharge Order Complete? Answers: Yes Patient to Obtain Answers: via Family Medications Transportation Arranged Answers: Family/Friends Discharge Comments Notes: 12/07/2017 Case Management Note Pt to d/c independent with follow up as directed. Date Signed: 12/07/2017 09:08 AM Electronically Signed By:Elizabeth Ventura RN Intervention Information
== END 2017-12-07 14:26 | disposition home or self-care (01) | DRG 236 ==
LOC: F3N 09:27 → F2N 12:16 → F2W 12-03 12:40
PROVIDERS: ADMIT Thoracic Surgery (Cardiothoracic Vascular Surgery); ATTEND Thoracic Surgery (Cardiothoracic Vascular Surgery)
PROC: 021109W Bypass Coronary Artery, Two Arteries from Aorta with Autologous Venous Tissue, Open Approach (ICD-10-PCS; principal; 2017-12-02 11:45)
PROC: 06BQ4ZZ Excision of Left Saphenous Vein, Percutaneous Endoscopic Approach (ICD-10-PCS; principal; 2017-12-02 11:45)
PROC: 02L70CK Occlusion of Left Atrial Appendage with Extraluminal Device, Open Approach (ICD-10-PCS; principal; 2017-12-02 11:45)
PROC: 02100Z9 Bypass Coronary Artery, One Artery from Left Internal Mammary, Open Approach (ICD-10-PCS; principal; 2017-12-02 11:45)
PROC: 5A1221Z Performance of Cardiac Output, Continuous (ICD-10-PCS; principal; 2017-12-02 11:45)
PROC: 02100Z8 Bypass Coronary Artery, One Artery from Right Internal Mammary, Open Approach (ICD-10-PCS; principal; 2017-12-02 11:45)
DX: I25.119 Atherosclerotic heart disease of native coronary artery with unspecified angina pectoris (principal); D62 Acute posthemorrhagic anemia; F11.20 Opioid dependence, uncomplicated; I48.0 Paroxysmal atrial fibrillation; I25.5 Ischemic cardiomyopathy; E11.69 Type 2 diabetes mellitus with other specified complication; R33.9 Retention of urine, unspecified; E78.5 Hyperlipidemia, unspecified; I12.9 Hypertensive chronic kidney disease with stage 1 through stage 4 chronic kidney disease, or unspecified chronic kidney disease; N18.3 Chronic kidney disease, stage 3 (moderate); Z79.84 Long term (current) use of oral hypoglycemic drugs; G89.29 Other chronic pain
CPT/HCPCS: 82947-QW; 97116-GP; 97162-GP; 97166-GO; 97530-GO; 97535-GO; G0463-PO; G8978-GP-CK; G8979-GP-CJ; G8987-GO-CK; G8988-GO-CI; J0153; J0171; J0282; J0690; J1100; J1170; J1265; J1644; J1815; J1885; J1940; J2001; J2150; J2250; J2260; J2370; J2405; J2440; J2704; J2720; J2765; J2930; J3010; J3475; J7060; P9041

== ENCOUNTER → 2017-12-15 | Outpatient (CLI) | payer OTHER, MEDICAID | LOC: FIMAGING 10:09 → EDSTATUS 10:10 | PROVIDERS: ATTEND Thoracic Surgery (Cardiothoracic Vascular Surgery) | DX: J90 Pleural effusion, not elsewhere classified (principal); J98.11 Atelectasis; I51.7 Cardiomegaly; Z95.1 Presence of aortocoronary bypass graft ==

== ENCOUNTER → 2017-12-29 | Outpatient (CLI) | payer OTHER, MEDICAID | LOC: FIMAGING 09:53 | PROVIDERS: ATTEND Thoracic Surgery (Cardiothoracic Vascular Surgery) | DX: Z09 Encounter for follow-up examination after completed treatment for conditions other than malignant neoplasm (principal); J90 Pleural effusion, not elsewhere classified; Z95.1 Presence of aortocoronary bypass graft ==

== ENCOUNTER → 2018-01-18 | Outpatient (CLI) | payer OTHER, MEDICAID | LOC: BHFA 10:45 | PROVIDERS: ATTEND Internal Medicine | DX: I25.10 Atherosclerotic heart disease of native coronary artery without angina pectoris (principal); E11.9 Type 2 diabetes mellitus without complications; R53.83 Other fatigue ==

== ENCOUNTER → 2018-05-04 | Outpatient (CLI) | payer OTHER, MEDICAID | LOC: BHFA 10:45 | PROVIDERS: ATTEND Internal Medicine | DX: R93.1 Abnormal findings on diagnostic imaging of heart and coronary circulation (principal); E78.5 Hyperlipidemia, unspecified; I10 Essential (primary) hypertension; Z79.899 Other long term (current) drug therapy ==

== ENCOUNTER → 2018-06-23 | Outpatient (CLI) | payer OTHER, MEDICAID | LOC: BHFA 08:30 | PROVIDERS: ATTEND Internal Medicine Cardiovascular Disease | DX: R07.9 Chest pain, unspecified (principal); I48.91 Unspecified atrial fibrillation; I25.10 Atherosclerotic heart disease of native coronary artery without angina pectoris; I10 Essential (primary) hypertension ==

== ENCOUNTER → 2018-07-06 | Outpatient (CLI) | payer OTHER, MEDICAID | LOC: BHFA 13:00 | PROVIDERS: ATTEND Internal Medicine Cardiovascular Disease | DX: I48.91 Unspecified atrial fibrillation (principal); R53.83 Other fatigue | CPT/HCPCS: 78452; 93017; 93225; 93226; A9500 ==